=== PATIENT | male | born 1995 ===

== ENCOUNTER 2019-03-31 19:16 | Emergency (ER) | payer SELFPAY ==
[~2019-03-31] VITALS: Ht 188 cm; Wt 63.1 kg
[2019-03-31 19:32] VITALS: BP 131/83
--- NOTE | 2019-03-31 20:25 | NUR ---
ASSESSMENT MADE. SEEN BY CARMEN. 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
--- NOTE | 2019-03-31 20:30 | NUR ---
BODY STRAIGHTENER AT BEDSIDE. PATIENT DENIES SI/HI.
--- NOTE | 2019-03-31 21:15 | NUR ---
PA talking to father at this time.
--- NOTE | 2019-03-31 21:53 | NUR ---
laboratory technical specialist at bedside for blood draw.
[2019-03-31 21:54] LABS: BASOPHILS # (AUTO) 0.03 x10^3/uL (0-0.1); BASOPHILS % (AUTO) 0 % (0-1); EOSINOPHILS # (AUTO) 0.13 x10^3/uL (0-0.4); EOSINOPHILS % (AUTO) 1 % (1-7); LYMPHOCYTES # (AUTO) 3.23 x10^3/uL (1-3.4); LYMPHOCYTES % (AUTO) 25 % (22-44); MD NO; MEAN CORPUSCULAR HEMOGLOBIN 31.3 pg (27.5-34.5); MEAN CORPUSCULAR HGB CONC 33.6 g/dL (33.2-36.2); MEAN CORPUSCULAR VOLUME 93.2 fL (81-97); MEAN PLATELET VOLUME 7.9 fL (7.4-10.4); MONOCYTES # (AUTO) 1.13 x10^3/uL (0.2-0.8); MONOCYTES % (AUTO) 9 % (2-9); NEUTROPHILS # (AUTO) 8.36 x10^3/uL (1.8-6.8); NEUTROPHILS % (AUTO) 65 % (42-75); PLATELET COUNT 317 x10^3/uL (130-400); RED BLOOD COUNT 5.33 x10^6/uL (4.38-5.82); RED CELL DISTRIBUTION WIDTH 13.6 % (9.4-14.8)
[2019-03-31] MEDS ORDERED: LIDOCAINE-MPF 1%, 5ML ONE (21:55)
[2019-03-31] MEDS ORDERED: LIDOCAINE-MPF 1%, 5ML INFIL ONE (22:00)
[2019-03-31 22:08] LABS: ALBUMIN 4.9 g/dL (3.4-5.0); ANION GAP 5 mmol/L (5-15); CALCIUM 9.4 mg/dL (8.5-10.1); CHLORIDE 107 mmol/L (98-107)
[2019-03-31 22:13] LABS: CREATININE 1.07 mg/dL (0.7-1.3)
[2019-03-31 22:15] LABS: SALICYLATE LEVEL < 1.7 mg/dL (2.8-20.0)
--- NOTE | 2019-03-31 22:30 | NUR ---
urine sent to lab.
[2019-03-31 22:42] LABS: AMPHETAMINE SCREEN, URINE Negative (Negative); BARBITURATE SCREEN, URINE Negative (Negative); BENZODIAZEPINE SCREEN, URINE Negative (Negative); CANNABINOID SCREEN, URINE Positive (Negative); COCAINE SCREEN, URINE Negative (Negative); METHADONE SCREEN, URINE Negative (Negative); OPIATE SCREEN, URINE Negative (Negative)
--- NOTE | 2019-03-31 22:53 | NUR ---
report to CAROL Marie.
--- NOTE | 2019-03-31 23:13 | NUR ---
PT SITTING IN CHAIR WITH FRINED WAITING FOR TELE PSYCH. NO NEEDS AT THIS TIME.
== END 2019-04-01 01:59 | disposition home or self-care (01) ==
LOC: ED 04-01 00:33
DX: S62.306A Unspecified fracture of fifth metacarpal bone, right hand, initial encounter for closed fracture (principal); X58.XXXA Exposure to other specified factors, initial encounter; Y93.89 Activity, other specified; Y92.009 Unspecified place in unspecified non-institutional (private) residence as the place of occurrence of the external cause; Y99.8 Other external cause status
CPT/HCPCS: 29125; 36415; 80048; 80307; 82040; 85025; 99284